=== PATIENT | female | born 1980 | race Caucasian/White ===

== ENCOUNTER 2019-12-14 14:21 | Inpatient (IN) | payer SELFPAY ==
[~2019-12-14] VITALS: Ht 154.9 cm; Wt 76.8 kg
[~2019-12-14 14:21] MED LIST: OXYC-302 PO
[2019-12-14 14:37] VITALS: BP 149/108
[2019-12-14] MEDS ORDERED: OXYTOCIN 30U/ 0.9% NaCL 500ML 500 ML IV ONE (14:58)
[2019-12-14] MEDS ORDERED: TERBUTALINE 1 MG/ML, 1ML IVPush PRN (15:00)
[2019-12-14] MEDS ORDERED: TERBUTALINE 1 MG/ML, 1ML SQ PRN (15:00)
[2019-12-14 15:04] LABS: BASOPHILS # (AUTO) 0.01 x10^3/uL (0-0.1); BASOPHILS % (AUTO) 0 % (0-1); EOSINOPHILS % (AUTO) 2 % (1-7); LYMPHOCYTES # (AUTO) 1.45 x10^3/uL (1-3.4); LYMPHOCYTES % (AUTO) 20 % (22-44); MD NO; MEAN CORPUSCULAR HEMOGLOBIN 27.8 pg (27.0-34.8); MEAN CORPUSCULAR HGB CONC 33.4 g/dL (32.4-35.8); MEAN CORPUSCULAR VOLUME 83.3 fL (80-100); MEAN PLATELET VOLUME 9.8 fL (7.4-10.4); MONOCYTES # (AUTO) 0.38 x10^3/uL (0.2-0.8); MONOCYTES % (AUTO) 5 % (2-9); NEUTROPHILS # (AUTO) 5.15 x10^3/uL (1.8-6.8); NEUTROPHILS % (AUTO) 73 % (42-75); PLATELET COUNT 239 x10^3/uL (130-400); RED BLOOD COUNT 5.23 x10^6/uL (3.82-5.3); RED CELL DISTRIBUTION WIDTH 15.7 % (9.6-15.2)
[2019-12-14 15:12] LABS: ALBUMIN 2.4 g/dL (3.4-5.0); ANION GAP 9 mmol/L (5-15); CALCIUM 8.8 mg/dL (8.5-10.1); CHLORIDE 110 mmol/L (98-107)
[2019-12-14 15:15] LABS: ALANINE AMINOTRANSFERASE 14 U/L (12-78); ALKALINE PHOSPHATASE 201 U/L (45-117); BILIRUBIN,TOTAL 0.9 mg/dL (0.2-1.0); CREATININE 0.63 mg/dL (0.55-1.02); TOTAL PROTEIN 7.1 g/dL (6.4-8.2)
[2019-12-14] MEDS: LACTATED RINGERS 1,000 ML IV SCH ×2 (15:30→23:38)
[2019-12-14] MEDS ORDERED: OXYTOCIN 30U/ 0.9% NaCL 500ML 500 ML IV PRN (15:38)
[2019-12-14 15:41] LABS: CREATININE,URINE RANDOM 73.3 mg/dL
[2019-12-14 15:43] LABS: MICROSCOPIC INDICATED
[2019-12-14] MEDS ORDERED: FENTANYL/BUPIV./NS/PF 250 ML EPIDCONT SCH ×2 (15:45→20:33)
[2019-12-14] MEDS ORDERED: NEWBORN KIT ONE (15:50)
[2019-12-14] MEDS ORDERED: OXYTOCIN 30U/ 0.9% NaCL 500ML 500 ML ONE ×2 (15:51→23:10)
[2019-12-14] MEDS ORDERED: MISOPROSTOL 200 MCG TABLET ONE (15:51)
[2019-12-14] MEDS ORDERED: LIDOCAINE 1%, 20ML ONE (15:51)
[2019-12-14] MEDS ORDERED: CALCIUM CARBONATE 500 MG TAB.CHEW PO PRN (16:00)
[2019-12-14] MEDS ORDERED: ALUMINUM/MAG/SIMETHICONE 30 ML UDC PO PRN (16:00)
[2019-12-14] MEDS ORDERED: LABETALOL 5MG/ML, 20ML IVPush PRN ×3 (16:00)
[2019-12-14] MEDS ORDERED: METOCLOPRAMIDE 5 MG/ML, 2ML IVPush PRN (16:00)
[2019-12-14] MEDS ORDERED: FENTANYL PF 500 MCG, BUPIVACAINE/PF 0.5%, 30ML 62.5 ML in SODIUM CHLORIDE 0.9% 177.5 ML EPIDCONT SCH (16:00)
[2019-12-14] MEDS ORDERED: SODIUM CITRATE/CITRIC ACID 30 ML UDC PO PRN (16:00)
[2019-12-14] MEDS ORDERED: SODIUM CHLORIDE FLUSH 10ML SYR IVF PRN (16:00)
[2019-12-14] MEDS ORDERED: hydrALAzine 20 MG/ML, 1ML IVPush ONE (16:00)
[2019-12-14] MEDS ORDERED: FENTANYL PF 100 MCG/2ML IVPush PRN (16:00)
[2019-12-14] MEDS ORDERED: ONDANSETRON 2MG/ML, 2ML IVPush PRN (16:00)
[2019-12-14] MEDS ORDERED: LABETALOL 5MG/ML, 20ML ONE (16:02)
[2019-12-14] MEDS ORDERED: BUPIVACAINE 0.25% ONE ×2 (17:34→17:40)
[2019-12-14] MEDS: LACTATED RINGERS 1,000 ML IVBOLUS PRN (17:39)
[2019-12-14] MEDS ORDERED: FENTANYL/BUPIV./NS/PF 250 ML EPIDCONT ONE (17:40)
[2019-12-14] MEDS ORDERED: LIDOCAINE/PF 1.5%-EPI 1:200K, 30ML ONE (17:40)
[2019-12-14] MEDS: D5%-LACTATED RINGERS 1,000 ML IV SCH ×2 (18:05→21:26)
[2019-12-14] MEDS ORDERED: ONDANSETRON 2MG/ML, 2ML ONE (19:02)
[2019-12-14] MEDS ORDERED: CALCIUM CARBONATE 500 MG TAB.CHEW ONE (19:52)
[2019-12-14 20:10] VITALS: BP 135/84
[2019-12-14] MEDS ORDERED: LACTATED RINGERS 1,000 ML IV SCH (20:33)
[2019-12-14] MEDS ORDERED: EPHEDRINE 50 MG/ML, 1ML IVPush PRN (21:00)
[2019-12-14] MEDS ORDERED: LACTATED RINGERS 1,000 ML IVBOLUS PRN (21:00)
[2019-12-14 21:42] VITALS: BP 144/84
[2019-12-14] MEDS ORDERED: OXYTOCIN 30U/ 0.9% NaCL 500ML 500 ML IV SCH (23:44)
[2019-12-15] MEDS ORDERED: SIMETHICONE 80 MG CHEW TAB PO PRN
[2019-12-15] MEDS ORDERED: ACETAMINOPHEN 325 MG TABLET PO PRN ×3
[2019-12-15] MEDS ORDERED: OXYcodone/APAP 5/325MG TABLET PO PRN ×2
[2019-12-15] MEDS ORDERED: MISOPROSTOL 200 MCG TABLET PR PRN
[2019-12-15] MEDS ORDERED: CALCIUM CARBONATE 500 MG TAB.CHEW PO PRN
[2019-12-15] MEDS ORDERED: ONDANSETRON 2MG/ML, 2ML IV PRN
[2019-12-15] MEDS ORDERED: DOCUSATE 100 MG CAPSULE PO PRN
[2019-12-15 01:30] VITALS: BP 135/84
[2019-12-15 04:30] VITALS: BP 129/80
[2019-12-15 07:39] LABS: BASOPHILS # (AUTO) 0.09 x10^3/uL (0-0.1); BASOPHILS % (AUTO) 1 % (0-1); EOSINOPHILS % (AUTO) 1 % (1-7); LYMPHOCYTES # (AUTO) 1.42 x10^3/uL (1-3.4); LYMPHOCYTES % (AUTO) 18 % (22-44); MD NO; MEAN CORPUSCULAR VOLUME 84.6 fL (80-100); MEAN PLATELET VOLUME 8.9 fL (7.4-10.4); MONOCYTES # (AUTO) 0.48 x10^3/uL (0.2-0.8); MONOCYTES % (AUTO) 6 % (2-9); NEUTROPHILS # (AUTO) 6.01 x10^3/uL (1.8-6.8); NEUTROPHILS % (AUTO) 74 % (42-75); PLATELET COUNT 200 x10^3/uL (130-400); RED CELL DISTRIBUTION WIDTH 15.3 % (9.6-15.2)
[2019-12-15 08:30] VITALS: BP 143/90
[2019-12-15] MEDS ORDERED: PRENATAL VIT/IRON/FA 1 EACH TABLET PO SCH (09:00)
== END 2019-12-15 11:10 | disposition home or self-care (01) | DRG 807 ==
LOC: LDOP 14:21 → LDIP 15:20 → 2NW 12-15 01:13
PROVIDERS: ADMIT Obstetrics & Gynecology; ATTEND Obstetrics & Gynecology
PROC: 10E0XZZ Delivery of Products of Conception, External Approach (ICD-10-PCS; principal; 2019-12-14)
PROC: 0HQ9XZZ Repair Perineum Skin, External Approach (ICD-10-PCS; 2019-12-14)
PROC: 3E0R3BZ Introduction of Anesthetic Agent into Spinal Canal, Percutaneous Approach (ICD-10-PCS; 2019-12-14)
PROC: 00HU33Z Insertion of Infusion Device into Spinal Canal, Percutaneous Approach (ICD-10-PCS; 2019-12-14)
PROC: 10907ZC Drainage of Amniotic Fluid, Therapeutic from Products of Conception, Via Natural or Artificial Opening (ICD-10-PCS; 2019-12-14)
DX: O13.4 Gestational [pregnancy-induced] hypertension without significant proteinuria, complicating childbirth (principal); Z37.0 Single live birth; O69.81X0 Labor and delivery complicated by cord around neck, without compression, not applicable or unspecified; O70.0 First degree perineal laceration during delivery; Z88.8 Allergy status to other drugs, medicaments and biological substances; O71.82 Other specified trauma to perineum and vulva; Z3A.38 38 weeks gestation of pregnancy
CPT/HCPCS: 36415; J3490; J7121; 80053; 81001; 82570; 84156; 84550; 85025; 86592; 86850; 86900; 87086; G0378; J2405; J2590; J3010; J7120